=== PATIENT | female | born 1985 | race Caucasian/White ===

== ENCOUNTER → 2020-07-31 16:30 | Outpatient (CLI) | payer OTHER, SELFPAY ==
[2020-08-04 03:07] LABS: Chlamydia By Nucleic Acid AMP Negative (Negative)
[2020-08-04 08:41] LABS: Gonococcus By Nucleic Acid AMP Negative (Negative)
[2020-08-09 13:53] LABS: HPV Reflexed? NOT INDICATED
== END ==
PROVIDERS: Visit Provider Obstetrics & Gynecology
DX: Z12.4 Encounter for screening for malignant neoplasm of cervix (principal); Z11.3 Encounter for screening for infections with a predominantly sexual mode of transmission
CPT/HCPCS: 87491; 87591; 88175; G0145